=== PATIENT | female | born 1990 | race Two or more races ===

== ENCOUNTER 2019-06-21 09:45 | Inpatient (IN) | payer MEDICAID ==
[~2019-06-21] VITALS: Ht 162.6 cm; Wt 70.9 kg
[2019-06-21 10:34] LABS: Basophils # (auto) 0.1 uL; Basophils % (auto) 0.4 % (0.0-2.0); Eosinophils # (auto) 0 uL; Hematocrit 39.9 % (36.0-46.0); Hemoglobin 13.6 g/dL (12.2-16.2); Lymphocytes # (auto) 1.3 uL; Lymphocytes % (auto) 5.8 % (10.0-50.0); Mean Corpuscular Hemoglobin 28.9 pg (28.0-32.0); Monocytes % (auto) 4.5 % (0.0-12.0); Neutrophils # (auto) 19.3 uL; Neutrophils % (auto) 89.3 % (37.0-80.0); Nucleated Red Blood Cells % 0.1 %; Platelet Count (auto) 174 10^3/uL (140-450); Red Blood Cells 4.69 10^6/uL (4.0-5.20); Red Cell Distribution Width 13.7 % (11.8-14.3); White Blood Cell 21.7 10^3/uL (4.4-10.8)
[2019-06-21 10:45] LABS: Urine Bacteria NONE SEEN /hpf (None Seen); Urine Blood TRACE /uL (Negative); Urine Mucus FEW (None Seen); Urine Specific Gravity 1.027 (1.001-1.035); Urine WBC 2 /hpf (0 - 5)
[2019-06-21] MEDS ORDERED: SODIUM CHLORIDE 0.9% 1,000 ML IVB ONE (12:18)
[2019-06-21 13:04] LABS: Calcium 9.2 mg/dL (8.5-10.1); Potassium 3.6 mmol/L (3.5-5.1)
[2019-06-21 13:08] LABS: BUN/Creatinine Ratio 10.7; Bilirubin, Total 0.7 mg/dL (0.2-1.0); Total Protein 7.7 g/dL (6.4-8.2)
[2019-06-21] MEDS ORDERED: cefTRIAXone 1GM/50ML D5W 50 ML IV ONE (13:30)
[2019-06-21] MEDS ORDERED: MORPHINE SULF INJ 2 MG/ML SYRINGE 1ML ONE (13:41)
[2019-06-21] MEDS ORDERED: MORPHINE SULF INJ 2 MG/ML SYRINGE 1ML IV ONE (13:45)
[2019-06-21] MEDS ORDERED: ONDANSETRON HCL 4 MG/2 ML VIAL IV ONE (13:45)
[2019-06-21] MEDS ORDERED: MORPHINE SULF INJ 2 MG/ML SYRINGE 1ML IV PRN (14:15)
[2019-06-21] MEDS ORDERED: NITROGLYCERIN 0.4 MG SL TAB SL PRN (14:15)
[2019-06-21] MEDS ORDERED: SODIUM CHLORIDE 0.9% 1,000 ML IV ONE (14:15)
[2019-06-21] MEDS ORDERED: ALBUTEROL SULF 2.5 MG/0.5ML(0.5%) NEB SOLN NEB PRN (14:15)
[2019-06-21] MEDS ORDERED: IPRATROPIUM BROM 0.5 MG/2.5ML INH SOL NEB PRN (14:15)
[2019-06-21] MEDS: LEVOFLOXACIN 500MG 100 ML IV SCH (14:56)
[2019-06-21] MEDS: HYDROmorphone HCL 2 MG/ML VL IV PRN ×2 (14:58→21:26)
[2019-06-21 15:04] VITALS: BP 108/81
[2019-06-21] MEDS: SOD CHL 0.9%/ KCL 20MEQ 1,000 ML IV SCH (15:08)
[2019-06-21 15:18] LABS: Lactic Acid w/Reflex 3.9 mmol/L (0.4-2.0)
[2019-06-21 15:22] LABS: INR 1.21 (0.9-1.15); Partial Thromboplastin Time 29.9 sec (23.64-32.05)
[2019-06-21] MEDS ORDERED: MIDAZOLAM HCL 1MG/1ML-2 ML VIAL ONE (18:00)
[2019-06-21] MEDS ORDERED: fentaNYL CITRATE 100 MCG/2 ML VL ONE (18:00)
[2019-06-21] MEDS ORDERED: ROCURONIUM 10MG/ML 10ML VIAL IV ONE (18:00)
[2019-06-21] MEDS ORDERED: PROPOFOL 10 MG/ML 20 ML IV ONE (18:00)
[2019-06-21] MEDS ORDERED: ePHEDrine SULFATE 50 MG/ML AMP IV PRN (19:00)
[2019-06-21] MEDS ORDERED: ONDANSETRON HCL 4 MG/2 ML VIAL IV PRN (19:00)
[2019-06-21] MEDS ORDERED: HYDROmorphone HCL 2 MG/ML VL IV PRN ×2 (19:00)
[2019-06-21] MEDS ORDERED: hydrALAZINE HCL 20 MG/ML VL IV PRN (19:00)
--- NOTE | 2019-06-21 20:30 | NUR ---
RECEIVED PT FROM OR NURSE POC REVIEWED, OBSERVED ABDOMEN DRESSING DRY AND INTACT, SMALL AMT OF DRAINAGE, HYPO BS, INGRID INTACT TO BULB SUCTION. C/O PAIN 11/07 ORIENTED PT TO NURSE CALL, ALL QUESTIONS AND CONCERNS ADDRESSED
[2019-06-21] MEDS: metroNIDAZOLE 500MG/100ML 100 ML IV SCH (21:26)
[2019-06-21] MEDS: ONDANSETRON HCL 4 MG/2 ML VIAL IV PRN (21:26)
--- NOTE | 2019-06-21 21:35 | NUR ---
PT ASSESSED FOR PRN MED NEB TX. SPO2 95% ON RA, HR 129. PT DENIES ANY RESPIRATORY DISTRESS. NO TX INDICATED. PT IS AWARE TO HAVE RT PAGED IF TX NEEDED.
[2019-06-21 22:00] VITALS: BP 94/40
--- NOTE | 2019-06-21 23:32 | NUR ---
UP TO [facility] WITH ASSIST PTS TEMP 100.1 COOLING MEASURES INITIATED, WILL CALL HOSPITALIST FOR ORDERS. INGRID 50 ML OUT SEROSANGEOUS FLUID
[2019-06-21] MEDS: FAMOTIDINE (10MG/ML) 2ML VL IV SCH (23:35)
--- NOTE | 2019-06-22 00:07 | NUR ---
PT S TEMP 101.7 COOLING MEASURES CONTINUE, PAGED HOSPITALIST
--- NOTE | 2019-06-22 00:32 | NUR ---
ORDERS RECEIVED FROM HOSPITALIST, PT STATES THAT SHE IS NOT ALLERGIC TO TYLENOL, BUT ASPIRIN CAUSES HER TO HAVE BUMPS ALL OVER HER BODY
[2019-06-22] MEDS: SOD CHL 0.9%/ KCL 20MEQ 1,000 ML IV SCH ×3 (00:37→20:15)
[2019-06-22] MEDS: ACETAMINOPHEN 325 MG TAB PO PRN ×2 (00:38→16:38)
--- NOTE | 2019-06-22 03:09 | NUR ---
RESTING COMFORTABLE CALL LIGHT WITHIN REACH
[2019-06-22 05:00] VITALS: BP 105/54
[2019-06-22] MEDS: ONDANSETRON HCL 4 MG/2 ML VIAL IV PRN (05:37)
[2019-06-22] MEDS: HYDROmorphone HCL 2 MG/ML VL IV PRN ×5 (05:38→20:28)
--- NOTE | 2019-06-22 06:01 | NUR ---
AWOKE UP TO BSC DOING WELL, TEMP 98.9, INGRID TOTAL OUTPUT 100ML SEROSANGUINEOUS SECRETION, HYPO BS, DRESSING DRY AND INTACT,EDUCATED PT ON POST OP CARE, DISCUSSED WITH PT IMPORTANCE OF AMBULATING, PT STATES SHE WILL AMBULATE AFTER BREAKFAST, C/O PAIN NOW 01/07 WILL CONTINUE TO MONITOR
[2019-06-22] MEDS: metroNIDAZOLE 500MG/100ML 100 ML IV SCH ×3 (06:52→22:25)
--- NOTE | 2019-06-22 06:57 | NUR ---
REPORT GIVEN TO AM NURSE POC REVIEWED
[2019-06-22 07:42] LABS: Basophils # (auto) 0 uL; Basophils % (auto) 0.2 % (0.0-2.0); Eosinophils # (auto) 0 uL; Eosinophils % (auto) 0.1 % (0.0-7.0); Hematocrit 33.1 % (36.0-46.0); Hemoglobin 11.2 g/dL (12.2-16.2); Lymphocytes # (auto) 1.5 uL; Lymphocytes % (auto) 11.5 % (10.0-50.0); Mean Corpuscular Hemoglobin 29.3 pg (28.0-32.0); Mean Corpuscular Volume 86.3 fL (80.0-100.0); Monocytes # (auto) 0.4 uL; Monocytes % (auto) 3.3 % (0.0-12.0); Neutrophils # (auto) 11.3 uL; Neutrophils % (auto) 84.9 % (37.0-80.0); Platelet Count (auto) 108 10^3/uL (140-450); Red Blood Cells 3.84 10^6/uL (4.0-5.20); Red Cell Distribution Width 13.9 % (11.8-14.3); White Blood Cell 13.3 10^3/uL (4.4-10.8)
[2019-06-22 07:55] LABS: Potassium 3.6 mmol/L (3.5-5.1)
[2019-06-22 08:03] LABS: Albumin 2.5 g/dL (3.4-5.0); BUN/Creatinine Ratio 14.3; Bilirubin, Total 0.8 mg/dL (0.2-1.0); Calcium 8.1 mg/dL (8.5-10.1); Total Protein 5.6 g/dL (6.4-8.2)
[2019-06-22 09:00] VITALS: BP 104/51
--- NOTE | 2019-06-22 09:27 | NUR ---
Respiratory note: PT ASSESSED FOR PRN MED NEB TX. SPO2 97% ON RA, HR 117. PT DENIES ANY RESPIRATORY DISTRESS. NO TX INDICATED. PT IS AWARE TO HAVE RT PAGED IF TX NEEDED.
[2019-06-22] MEDS: LEVOFLOXACIN 500MG 100 ML IV SCH (09:36)
[2019-06-22] MEDS: FAMOTIDINE (10MG/ML) 2ML VL IV SCH ×2 (09:36→22:25)
[2019-06-22 13:45] VITALS: BP 118/57
[2019-06-22 22:56] VITALS: BP 105/64
[2019-06-23] MEDS: metroNIDAZOLE 500MG/100ML 100 ML IV SCH (05:53)
[2019-06-23] MEDS: SOD CHL 0.9%/ KCL 20MEQ 1,000 ML IV SCH (06:15)
[2019-06-23 06:23] VITALS: BP 121/55
[2019-06-23 06:36] LABS: Basophils # (auto) 0 uL; Basophils % (auto) 0.2 % (0.0-2.0); Eosinophils # (auto) 0 uL; Eosinophils % (auto) 0.2 % (0.0-7.0); Hematocrit 36.3 % (36.0-46.0); Hemoglobin 12.2 g/dL (12.2-16.2); Lymphocytes # (auto) 1.1 uL; Lymphocytes % (auto) 10.3 % (10.0-50.0); Mean Corpuscular Hemoglobin 28.8 pg (28.0-32.0); Mean Corpuscular Hgb Conc. 33.5 g/dL (32.0-36.0); Monocytes # (auto) 0.4 uL; Monocytes % (auto) 3.5 % (0.0-12.0); Neutrophils # (auto) 9.4 uL; Neutrophils % (auto) 85.8 % (37.0-80.0); Platelet Count (auto) 120 10^3/uL (140-450); Red Blood Cells 4.23 10^6/uL (4.0-5.20); Red Cell Distribution Width 13.8 % (11.8-14.3)
[2019-06-23 06:53] LABS: Calcium 8.8 mg/dL (8.5-10.1); Potassium 3.5 mmol/L (3.5-5.1)
[2019-06-23 06:55] LABS: BUN/Creatinine Ratio 14.6
--- NOTE | 2019-06-23 07:30 | NUR ---
Opening Shift Note RECEIVED REPORT FROM NOC RN. Assumed care of patient, awake and alert. No S/S of distress/SOB or pain. BED IN LOWEST, LOCKED POSITION WITH SIDERAILS UP x2 AND CALL LIGHT WITHIN REACH. Instructed on POC and to call for assist PRN, will continue to monitor for changes Q1hr and PRN.
[2019-06-23 09:08] VITALS: BP 113/58
--- NOTE | 2019-06-23 10:05 | NUR ---
Respiratory note: ASSESSED PT FOR PRN MEDNEB TX. HR 112, RR 18, SPO2 93% ON ROOM AIR. BREATH SOUNDS CLEAR/DIMINISHED THROUGHOUT. NO S/S OF RESPIRATORY DISTRESS NOTED. MEDNEB TX NOT INDICATED AT THIS TIME. ADVISED PT TO CALL FOR RT IF NEEDED.
[2019-06-23] MEDS: FAMOTIDINE (10MG/ML) 2ML VL IV SCH (10:16)
[2019-06-23] MEDS: LEVOFLOXACIN 500MG 100 ML IV SCH (10:16)
[2019-06-23] MEDS ORDERED: METR500T PO (11:01)
[2019-06-23] MEDS ORDERED: ONDA-144 PO (11:01)
[2019-06-23] MEDS ORDERED: LEVO-28 PO (11:01)
[2019-06-23] MEDS ORDERED: IBUP400T21 PO (11:05)
[2019-06-23 11:41] VITALS: BP 113/58
[2019-06-23 12:13] VITALS: BP 117/68
== END 2019-06-23 13:40 | disposition home or self-care (01) | DRG 710 ==
LOC: ER 09:45 → OVERFLOW 09:46 → WEST WING 20:27
PROVIDERS: ADMIT Nurse Practitioner Acute Care; ATTEND Internal Medicine
PROC: 0DTJ4ZZ Resection of Appendix, Percutaneous Endoscopic Approach (ICD-10-PCS; principal; 2019-06-21 17:55)
DX: A41.9 Sepsis, unspecified organism (principal); K35.32 Acute appendicitis with perforation, localized peritonitis, and gangrene, without abscess; J45.909 Unspecified asthma, uncomplicated; Z82.49 Family history of ischemic heart disease and other diseases of the circulatory system; Z83.3 Family history of diabetes mellitus
CPT/HCPCS: 36415; 71045; 74176; 80048; 80053; 81001; 82150; 83605; 83690; 83735; 84702; 85025; 85610; 85730; 86850; 86900; 86901; 87040; 87070; 87075; 87076; 87077; 87186; 96361; 96365; 96375; G0378; J0696; J1956; J2250; J2405; J2704; J3490